=== PATIENT | male | born 1985 | race Two or more races ===

== ENCOUNTER 2022-06-02 19:51 | Emergency (ER) | payer MEDICAID ==
[~2022-06-02] VITALS: Ht 182.9 cm; Wt 80.0 kg
[2022-06-03] MEDS ORDERED: IBUP-2028 MT (01:21)
[2022-06-03 01:54] VITALS: BP 112/75
== END 2022-06-03 01:54 | disposition home or self-care (01) ==
LOC: ER 19:51
DX: M79.671 Pain in right foot (principal); F12.10 Cannabis abuse, uncomplicated
CPT/HCPCS: 73630; 99283